=== PATIENT | female | born 1940 | race Caucasian/White ===

== ENCOUNTER → 2019-10-17 | Outpatient (CLI) | payer MEDICARE, OTHER ==
--- NOTE | 2019-10-18 11:30 | XCELERA REPORT ---
[address] [address] Transthoracic Echocardiogram Report Name: INGE HENDRIX Age: 79 yrs Gender: Female : 1940 Patient Status: Outpatient Patient Location: [facility] Study Date: 10/17/2019 03:23 PM History: Atrial fibrillation HTN Height: 60 in Weight: 180 lb BSA: 1.8 m2 Procedure: A complete two-dimensional transthoracic echocardiogram was performed (2D, M-mode, spectral and color flow Doppler). The study was technically difficult with many images being suboptimal in quality. Reason For Study: AFIB, HTN Previous Evaluation: No previous studies were available. History: HTN. Atrial fibrillation. Ordering Physician: AZALIA RAMÍREZ Performed By: Mala Quijano Interpretation Summary Left ventricular systolic function is normal. The Ejection Fraction estimate is 60-65% The right ventricle is normal in size and function. There is a trace amount of mitral regurgitation There is mild aortic stenosis There is a trace amount of aortic regurgitation There is a mild amount of tricuspid regurgitation There is mild to moderate pulmonary hypertension by echo There is no pericardial effusion. MMode/2D Measurements & Calculations RVDd: 3.0 cm LVIDd: 4.5 cm FS: 36.8 % Ao root diam: 2.5 cm IVSd: 1.1 cm LVIDs: 2.8 cm EDV(Teich): 90.8 ml Ao root area: 4.8 cm2 LVPWd: 0.99 cm ESV(Teich): 30.1 ml LA dimension: 3.6 cm EF(Teich): 66.9 % LVOT diam: 1.9 cm LVOT area: 2.7 cm2 Doppler Measurements & Calculations MV E max jacky: MV P1/2t max jacky: Ao V2 max: LV V1 max P.3 cm/sec 112.2 cm/sec 302.2 cm/sec 6.2 mmHg MV A max jacky: MV P1/2t: 51.4 msec Ao max PG: LV V1 mean P.6 cm/sec MVA(P1/2t): 4.3 cm2 36.6 mmHg 3.0 mmHg MV E/A: 3.4 MV dec slope: Ao V2 mean: LV V1 max: 203.2 cm/sec 124.3 cm/sec 639.4 cm/sec2 Ao mean PG: LV V1 mean: MV dec time: 0.17 sec 19.5 mmHg 82.3 cm/sec Ao V2 VTI: 54.0 cmLV V1 VTI: 23.9 cm ALPESH(I,D): 1.2 cm2 LV dP/dt: 2272 mmHg/s ALPESH(V,D): 1.1 cm2 SV(LVOT): 65.5 ml PA V2 max: TR max jacky: MV P1/2t-pr_phl: 102.7 cm/sec 302.7 cm/sec 51.4 msec PA max P.2 mmHg TR max P.6 mmHg Left Ventricle The left ventricle is grossly normal size. Left ventricular systolic function is normal. The Ejection Fraction estimate is 60-65%. LV diastolic function not assessed. Right Ventricle The right ventricle is normal in size and function. Atria The right atrium is mildly dilated. The left atrium is mildly dilated. The interatrial septum is intact with no evidence for an atrial septal defect. There is no Doppler evidence for an interatrial shunt. The thickening of interatrial septum suggests lipomatous hypertrophy. Mitral Valve The mitral valve is grossly normal. There is a trace amount of mitral regurgitation. Aortic Valve The aortic valve is sclerotic, but shows no functional abnormality. The aortic valve is mildly calcified. The aortic valve opens well. There is mild aortic stenosis. ZhX=698 cm/s [place] PG=20 mm Hg ALPESH=1.19 cm2. There is a trace amount of aortic regurgitation. Tricuspid Valve The tricuspid valve is normal in structure and function. There is a mild amount of tricuspid regurgitation. Right ventricular systolic pressure is estimated to be elevated at 40-50mmHg. There is mild to moderate pulmonary hypertension by echo. Pulmonic Valve The pulmonic valve is not well seen, but is grossly normal. There is no pulmonic valvular stenosis. There is a trace amount of pulmonic regurgitation. Great Vessels The inferior vena cava appeared normal and decreased > 50% with respiration (RAP 5-10 mmHg). Effusions There is no pericardial effusion. : AZALIA RAMÍREZ Anil
== END ==
LOC: SP 14:55
PROVIDERS: ATTEND Internal Medicine
DX: I48.91 Unspecified atrial fibrillation (principal); I10 Essential (primary) hypertension; R01.1 Cardiac murmur, unspecified
CPT/HCPCS: 93306